=== PATIENT | male | born 1980 | race American Indian/Alaskan Native ===

== ENCOUNTER 2023-12-30 10:05 | Emergency (ER) | payer MEDICAID ==
[~2023-12-30] VITALS: Ht 185.4 cm; Wt 79.3 kg
[2023-12-30 10:24] VITALS: TEMP 97.6; O2SAT 100
[2023-12-30] MEDS ORDERED: IBUP-2028 MT (11:33)
[2023-12-30] MEDS ORDERED: KETOROLAC 30MG/ML VIAL IM ONE (11:45)
[2023-12-30 11:51] VITALS: BP 128/78; PULSE 78; RESP 16; O2SAT 99
== END 2023-12-30 11:52 | disposition home or self-care (01) ==
LOC: ER 10:05
DX: S70.01XA Contusion of right hip, initial encounter (principal); V49.9XXA Car occupant (driver) (passenger) injured in unspecified traffic accident, initial encounter; Y93.89 Activity, other specified; Y92.89 Other specified places as the place of occurrence of the external cause; Y99.8 Other external cause status
CPT/HCPCS: 73502; 99283

== ENCOUNTER 2024-07-28 11:40 | Emergency (ER) | payer MEDICAID ==
[~2024-07-28] VITALS: Ht 188 cm; Wt 74.0 kg
[~2024-07-28 11:40] MED LIST: IBUP-2028 MT
[2024-07-28 12:20] VITALS: O2SAT 98
[2024-07-28] MEDS ORDERED: SULF1TAB47 MT (13:51)
[2024-07-28] MEDS ORDERED: CIPHCO LEFT EAR (13:51)
[2024-07-28 14:08] VITALS: BP 116/80; PULSE 82; RESP 18; TEMP 36.8; O2SAT 98
== END 2024-07-28 14:10 | disposition home or self-care (01) ==
LOC: ER 11:40
DX: H60.02 Abscess of left external ear (principal); Z96.649 Presence of unspecified artificial hip joint
CPT/HCPCS: 99283